=== PATIENT | female | born 1985 | race Caucasian/White ===

== ENCOUNTER 2017-02-16 06:58 | Emergency (ER) | payer SELFPAY ==
[2017-02-16 07:21] VITALS: BP 111/74
--- NOTE | 2017-02-16 07:39 | Emergency Department Report ---
ED Female HPI - General Chief complaint: Skin/Abscess/Foreign Body Stated complaint: SPIDER BITE VAGINAL AREA Time Seen by Provider: 02/16/17 07:31 Source: patient Mode of arrival: Ambulatory Limitations: No Limitations - History of Present Illness Initial comments: 31-year-old femalesignificant past medical history presents with 3 days of complaint of boil to her right buttock below her right labia. States it is uncomfortable. States it is slightly swollen. Denies any fever or chills no dysuria no difficulty defecating. Denies any purulent drainage. Denies any abdominal pain no nausea no vomiting. MD Complaint: other Onset/Timin -: days(s) Location: labia, other Severity: mild Severity scale (0 -10): 5 (right buttock) Quality: aching Consistency: constant Improves with: none Worsens with: movement Are you Now?: No Associated Symptoms: denies other symptoms - Related Data Sexually active: Yes Previous Rx's Medication Instructions Recorded Last Taken Type Cephalexin [Keflex] 500 mg PO BID #14 capsule 02/16/17 Unknown Rx Ibuprofen [Motrin] 600 mg PO Q8H PRN #25 tablet 02/16/17 Unknown Rx Sulfamethoxazole/Trimethoprim 1 each PO BID #14 tablet 02/16/17 Unknown Rx [Bactrim DS TAB] Allergies Allergy/AdvReac Type Severity Reaction Status Date / Time No Known Allergies Allergy Verified 02/16/17 07:56 ED Review of Systems ROS: Stated complaint: SPIDER BITE VAGINAL AREA Other details as noted in HPI Constitutional: denies: chills, fever Eyes: denies: eye pain, eye discharge, vision change ENT: denies: ear pain, throat pain Respiratory: denies: cough, shortness of breath, wheezing Cardiovascular: denies: chest pain, palpitations Endocrine: no symptoms reported Gastrointestinal: denies: abdominal pain, nausea, diarrhea Genitourinary: denies: urgency, dysuria, discharge Musculoskeletal: denies: back pain, joint swelling, arthralgia Skin: denies: rash, lesions Neurological: denies: headache, weakness, paresthesias Psychiatric: denies: anxiety, depression Hematological/Lymphatic: denies: easy bleeding, easy bruising ED Past Medical Hx - Past Medical History Previous Medical History?: Yes Additional medical history: Vaginal delivery x 2 - Surgical History Past Surgical History?: Yes Additional Surgical History: Tubaligation - Social History Smoking Status: Never Smoker Substance Use Type: None - Medications Home Medications: Home Medications Medication Instructions Recorded Confirmed Last Taken Type Cephalexin [Keflex] 500 mg PO BID #14 capsule 02/16/17 Unknown Rx Ibuprofen [Motrin] 600 mg PO Q8H PRN #25 tablet 02/16/17 Unknown Rx Sulfamethoxazole/Trimethoprim 1 each PO BID #14 tablet 02/16/17 Unknown Rx [Bactrim DS TAB] ED Physical Exam - General Limitations: No Limitations General appearance: alert, in no apparent distress - Head Head exam: Present: atraumatic, normocephalic - Eye Eye exam: Present: normal appearance, PERRL, EOMI - ENT ENT exam: Present: mucous membranes moist - Neck Neck exam: Present: normal inspection - Respiratory Respiratory exam: Present: normal lung sounds bilaterally. Absent: respiratory distress - Cardiovascular Cardiovascular Exam: Present: regular rate, normal rhythm. Absent: systolic murmur, diastolic murmur, rubs, gallop - GI/Abdominal GI/Abdominal exam: Present: soft, normal bowel sounds - Rectal Rectal exam: Present: normal rectal tone, other (small abscess approximately 2.5 cm in diameter with central fluctuance right in her buttock region not in Perinuem not perianal in lower/inferior aspect of the right buttock region) - External exam: Present: lesions (small abscess) Speculum exam: Present: normal speculum exam Bi-manual exam: Present: normal bi-manual exam - Extremities Exam Extremities exam: Present: normal inspection - Back Exam Back exam: Present: normal inspection - Neurological Exam Neurological exam: Present: alert, oriented X3 - Psychiatric Psychiatric exam: Present: normal affect, normal mood - Skin Skin exam: Present: warm, dry, intact, normal color. Absent: rash ED Course Vital Signs 02/16/17 07:18 Temperature 98.7 F Pulse Rate 89 Respiratory 18 Rate Blood Pressure 111/74 O2 Sat by Pulse 100 Oximetry - I & D Right Lower Medial Buttocks Type of Procedure: Simple Site: inferior right buttock region adjacent to inner thigh Blade Size: 11 I & D Procedure: betadine prep Progress: 6 mL of lidocaine with epinephrine used, good anesthesia achieved, 1.5 cm incision made straight, minor amount. Drainage, abscess expressed approximately 1-2 mL of pus, procedure tolerated well minimal bleeding. 3 inches of quarter-inch iodoform gauze inserted into wound ED Medical Decision Making - Medical Decision Making A/P: Abscess 1-no involvement of perineum no crepitus and groin/perineal no rectal involvement rectal vault normal on digital rectal exam no pain no fluctuance. Abscess borders well-defined, incised and drained successfully. Small amount of iodoform gauze placed in wound, I instructed patient to remove this in 12-24 hours. Patient understood these instructions clearly 2-Bactrim and Keflex twice a day 7 days, Motrin when necessary for pain 3-I advised patient to return to the ED if she has any difficulty defecating if she notices reaccumulation of abscess if pain or swelling extends into the labia or the perineum. As his abscess was very small and has been successfully incised this is unlikely but I did warn patient to return if she feels symptoms are worse. Patient stated she understood these instructions 4- wound culture sent Critical care attestation.: If time is entered above; I have spent that time in minutes in the direct care of this critically ill patient, excluding procedure time. ED Disposition Clinical Impression: Abscess of buttock, right Disposition: DISCHARGED TO HOME OR SELFCARE Is pt being admited?: No Does the pt Need Aspirin: No Condition: Stable Instructions: Abscess Incision and Drainage (ED), Abscess (ED) Prescriptions: Cephalexin [Keflex] 500 mg PO BID #14 capsule Ibuprofen [Motrin] 600 mg PO Q8H PRN #25 tablet PRN Reason: Pain Sulfamethoxazole/Trimethoprim [Bactrim DS TAB] 1 each PO BID #14 tablet Referrals: GABBIE OKEEFE MD [Staff Physician] - 3-5 Days Forms: Work/School Release Form(ED) Time of Disposition: 08:24
[2017-02-16] MEDS ORDERED: MOTRIN PO ONE (07:55)
[2017-02-16] MEDS ORDERED: XYLOCAINE 1%/ EPI 1:100,000 INFILTRATI NR (08:00)
== END 2017-02-16 08:35 | disposition home or self-care (01) ==
LOC: ED 06:58
DX: L02.31 Cutaneous abscess of buttock (principal); Z98.51 Tubal ligation status
CPT/HCPCS: 87116